=== PATIENT | female | born 1970 | race Caucasian/White ===

== ENCOUNTER 2019-11-28 13:05 | Observation (INO) | payer OTHER ==
--- NOTE | 2019-11-28 13:06 | EDM.PDOC ---
ED HPI GENERAL MEDICAL PROBLEM - General Chief Complaint: Cardiovascular Problem Stated Complaint: tachycardia Time Seen by Provider: 11/28/19 13:06 Source of Information: Reports: Patient, Old Records ([facility] EMR. No paper hospital chart available.) History Limitations: Reports: No Limitations - History of Present Illness INITIAL COMMENTS - FREE TEXT/NARRATIVE: The patient was brought to the emergency room via private automobile by her [id number] for evaluation of sudden onset heart flutter at about 12:40 p.m. this morning associated with dizziness and some mild diaphoresis with nonspecific retrosternal 3/10 chest pressure, which did radiate into her neck and shoulders bilaterally. Note that the patient did have some nonspecific nausea about one hour prior to onset of those symptoms. She has had some recent URI symptoms with secondary nonproductive cough during the last 3 days and has been using OTC cold preparations. She has also been drinking more caffeine than usual and did have 3 glasses of tea yesterday and coffee this morning. She denies any known previous history of similar type symptoms or cardiac complaints /workup. The patient denies any orthostasis, orthopnea, diaphoresis, paresthesias, recent decreased exercise tolerance, or any other anginal-type symptoms. No recent history of abdominal pain, heartburn, emesis, diarrhea, melena, gross hematochezia, or any food intolerance, including fatty foods, etc.. She denies any gross hematuria, colic, or other UTI symptoms. The patient also denies any recent fever, wheezing, dyspnea, etc.. Onset: Today, Sudden Onset Date: 11/28/19 Onset Time: 12:40 Duration: Constant Location: Reports: Neck, Chest, Upper Extremity, Left, Upper Extremity, Right, Radiates to (As above). Denies: Abdomen, Back Quality: Reports: Pressure Improves with: Reports: None Worsens with: Reports: None Context: Reports: Activity (Normal), Other (As above). Denies: Sick Contact, Trauma Associated Symptoms: Reports: Chest Pain, Cough, Diaphoresis, Nausea/Vomiting ( No Emesis). Denies: Confusion, cough w sputum, Fever/Chills, Headaches, Loss of Appetite, Malaise, Rash, Seizure, Shortness of Breath, Syncope Treatments CONTAINERS SALES REPRESENTATIVE: Reports: Other (see below) (None) Middle Chest Pain Score (Numeric/FACES): 3 - Related Data Allergies Allergy/AdvReac Type Severity Reaction Status Date / Time povidone-iodine Allergy Other Verified 11/28/19 13:46 [From Betadine] soap [From Betadine] Allergy Other Verified 11/28/19 13:46 Home Meds: Home Meds D-Methorphan/Acetamin/Doxylamn [Night Cold-Flu Relief Liq Cap] 1 each PO BEDTIME PRN 11/28/19 [History] D-Methorphan/PE/Acetaminophen [Daytime Cold-Flu Relief Sftgl] 2 each PO BID PRN 11/28/19 [History] Ibuprofen 600 - 800 mg PO DAILY PRN 11/28/19 [History] Loratadine [Claritin] 10 mg PO DAILY PRN 11/28/19 [History] Naproxen Sodium [Aleve] 220 mg PO DAILY PRN 11/28/19 [History] Past Medical History HEENT History: Reports: Allergic Rhinitis, Impaired Vision, Other (See Below). Denies: Cataract, Glaucoma, Hard of Hearing, Macular Degeneration, Otitis Media , Retinal Detachment Other HEENT History: Seasonal allergic rhinitis. She wears glasses and soft contact lenses. Cardiovascular History: Reports: High Cholesterol, Hypertension, Other (See Below). Denies: Afib, Aneurysm, Arrhythmia, Blood Clots/VTE/DVT, CAD, Heart Failure, Heart Murmur, OR, Syncope Other Cardiovascular History: Preeclampsia with all pregnancies as below. Hyperlipidemia with no current medical therapy. Respiratory History: Reports: Intubation, Previous. Denies: Asthma, Bronchitis , Recurrent, COPD, Intubation, Difficult, PE, Pneumonia, Recurrent, Pneumothorax , Sleep Apnea Gastrointestinal History: Reports: Colon Polyp, Other (See Below). Denies: Celiac Disease, Cholelithiasis, Chronic Constipation, Chronic Diarrhea, Fecal Incontinence, Gastritis, GERD, GI Bleed, Hepatitis, Hiatal Hernia, Inflammatory Bowel Disease, Irritable Bowel Syndrome, Jaundice, Pancreatitis, PUD Other Gastrointestinal History: Father with colon cancer as below. Genitourinary History: Reports: Urinary Incontinence, Other (See Below). Denies : Acute Renal Failure, Chronic Renal Insuffiency, Renal Calculus, STD, UTI, Recurrent Other Genitourinary History: Urinary incontinence with required hysterectomy as below with no problems after surgery. DISTRICT ADMINISTRATIVE ASSISTANT History: Reports: , Prolapsed Uterus. Denies: Dysfunctional Uterine Bleeding, Endometriosis, Fibroids : 4 Para: 3 LMP (Approximate): Other (See Below) Other DISTRICT ADMINISTRATIVE ASSISTANT History: Surgical menopause secondary to urinary incontinence as above. First trimester SAB requiring D&C as below with first . Premature delivery at 26 weeks gestation with second although vaginal delivery. Subsequent 2 deliveries at full-term at 36 weeks at with however gestational diabetes and preeclampsia with all pregnancies. Musculoskeletal History: Reports: Arthritis, Osteoarthritis. Denies: Back Pain , Chronic, Connective Tissue Disease, Fracture, Gout, Neck Pain, Chronic, RA, SLE Neurological History: Reports: None, Concussion, Head Trauma, Other (See Below) . Denies: Cerebral Aneurysms, CVA, Headaches, Chronic, Migraines, MS, Neuropathy, Peripheral, Parkinson's, Seizure, Vertigo Other Neuro History: Concussions 2 in teenage years. Psychiatric History: Reports: ADD, ADHD, Anxiety, Depression, Panic Attack, Suicidal Ideation. Denies: Abuse, Victim of, Addiction, Psych Hospitalization(s ), PTSD, Suicide Attempt Other Psychiatric History: Suicidal ideation with outpatient psychiatric treatment in about 2014. Endocrine/Metabolic History: Reports: Diabetes, Gestational, Obesity/BMI 30+. Denies: Diabetes, Type I, Diabetes, Type II, Hypothyroidism, IDDM, Osteopenia Hematologic History: Reports: Blood Transfusion(s), Other (See Below). Denies: Anemia, Iron Deficiency Other Hematologic History: Transfusion after second delivery secondary to post hemorrhage. Immunologic History: Reports: None. Denies: AIDS, HIV, SLE Oncologic (Cancer) History: Reports: Cervix, Other (See Below). Denies: Basal Cell Carcinoma, Colon, Hodgkin's Lymphoma, Leukemia, Lymphoma, Malignant Melanoma, Non-Hodgkin's Lymphoma, Ovarian, Squamous Cell Carcinoma, Thyroid, Uterine Other Oncologic History: Cervical atypia with HPV in about 2001 with no therapy required and spontaneous resolution. Dermatologic History: Reports: Other (See Below). Denies: Eczema, Psoriasis Other Dermatologic History: Acne vulgaris. - Infectious Disease History Infectious Disease History: Reports: Chicken Pox. Denies: C-Difficile, Measles , Meningitis, Mononucleosis, MRSA, Mumps, Pertussis (Whooping Cough), Rheumatic Fever, RSV, Rubella, Scarlet Fever, Shingles, TB, VRE - Past Surgical History Head Surgeries/Procedures: Reports: None HEENT Surgical History: Reports: Adenoidectomy, Oral Surgery, Tonsillectomy, Other (See Below). Denies: Cataract Surgery, Eye Surgery, Laser Surgery, LASIK , Myringotomy w Tube(s), Naso-Sinus Surgery Other HEENT Surgeries/Procedures: Tonsillectomy and adenoidectomy at age 9. [place] teeth extraction 4 at age 21 with additional teeth extractions. Cardiovascular Surgical History: Reports: None. Denies: Varicose Respiratory Surgical History: Reports: None. Denies: Thoracentesis GI Surgical History: Denies: Appendectomy, Cholecystectomy, Colonoscopy, EGD, Hernia, Abdominal, Hernia, Inguinal, Hernia Repair/Other Female Surgical History: Reports: D&C, Dilitation & Evacuation, Hysterectomy , Other (See Below). Denies: Breast Biopsy, Breast Reconstruction, Breast Reduction, Section, Cervical Conization, Cervical Cryotherapy, LEEP, Oophorectomy, Salpingo-Oophorectomy, Tubal Ligation Other Female Surgeries/Procedures: Partial Hysterectomy secondary to uterine incontinence as above in 2017. D&C from SAB during first as above. Endocrine Surgical History: Reports: None. Denies: Thyroid Biopsy Neurological Surgical History: Reports: None. Denies: C-Spine, Discectomy, Laminectomy, Lumbar Spine, Sacral Spine, Spinal Fusion, Thoracic Spine, Vertebroplasty Musculoskeletal Surgical History: Reports: None. Denies: Arthroscopic Procedure , Carpal Tunnel, Ganglion Cyst, Joint Replacement, ORIF, Shoulder Surgery Oncologic Surgical History: Reports: None Dermatological Surgical History: Reports: None - Past Imaging History Past Imaging History: Reports: Mammogram (Last mammogram in 2018 by patient history with our record showing mammogram on 09/29/14.) Social & Family History - Family History HEENT: Reports: Glaucoma, Other (See Below). Denies: Macular Degeneration, Retinal Detachment Other HEENT Family History: Father with glaucoma. Cardiac: Reports: Bypass, CAD, Heart Murmur, High Cholesterol, Hypertension, OR , Other (See Below). Denies: Afib, Aneurysm, Arrhythmia, Blood Clots/VTE/DVT, Heart Failure, Pacemaker, PVD/COD, Syncope Other Cardiac Family History: Father with initial OR at age 55 with history of subsequent borderline unstable angina recurrent MIs requiring total of 3 CABGs? Additional history of unknown valvular surgery. Hypertension in in father, sisters 2 and brothers 2. Father with hyperlipidemia. Respiratory: Reports: Asthma, COPD, Sleep Apnea, Other (See Below). Denies: PE , Pneumothorax Other Respiratory Family Hisory: Mother with history of asthma/? COPD with history of tobacco use. Brother with sleep apnea. GI: Reports: None. Denies: Celiac Disease, Cholelithiasis, Colon Polyps, GERD, GI bleed, Hepatitis, Inflammatory Bowel Disease, Irritable Bowel Syndrome, PUD : Reports: Renal Calculus, Other (See Below). Denies: Dialysis, Renal Disease /Insufficiency, UTI, Recurrent Other Family History: Mother and brother with urolithiasis. OBGYN: Reports: None. Denies: Dysfunctional uterine bleeding, Endometriosis, Fibroids, Recurrent Spontaneous Musculoskeletal: Reports: Osteoarthritis, RA, Other (See Below). Denies: Gout, SLE Other Musculoskeletal Family History: Sister with rheumatoid arthritis. Osteoarthritis in sisters 2 and brothers 2. Neurological: Reports: Alzheimers Disease, Dementia, Migraines, Other (See Below ). Denies: CVA, MS, Parkinson's, Seizure, TIA Other Neurological Family History: Father with fatal organic brain syndrome in his 80s. Migraine headaches in sister and brother. Mother with restless leg syndrome. Psychiatric: Reports: Anxiety, Depression, Other (See Below). Denies: Abuse, Victim of, ADD, ADHD, Psych Hospitalization(s), PTSD, Suicide Attempt Other Psychiatric Family History: Anxiety depression disorder in mother, sisters 3 and brothers 2. Endocrine/Metabolic: Reports: Diabetes, type II, IDDM, Obesity/MBI 30+, Other ( See Below). Denies: Diabetes, Type I, Diabetes Mellitus, Type 3c Other Endocrine/Metabolic Family History: AODM in brother and sister. Father with IDDM. Obesity in parents, sisters 3 and brothers 2. Hematologic: Reports: Anemia, Other (See Below). Denies: SLE Other Hematologic Family History: Mother with anemia. Immunologic: Reports: None. Denies: AIDS, HIV, SLE Dermatologic: Reports: None. Denies: Eczema, Psoriasis Oncologic: Reports: Breast, Colon, Metastatic, Other (See Below). Denies: Cervix, Hodgkin's Lymphoma, Leukemia, Lymphoma, Non-Hodgkin's Lymphoma, Ovarian , Skin, Uterine Other Oncologic Family History: Mother breast cancer in her 70s and and sisters 2 with breast cancer in their 40s with qne sister having metastatic breast cancer in her 50s. Father with colon cancer in his late 70s. - Tobacco Use Smoking Status *Q: Never Smoker Tobacco Use Within Last Twelve Months: No Used Tobacco, but Quit: No Smoking Cessation Information Provided To Patient: No Second Hand Smoke Exposure: No Second Hand Smoke Education Provided: No - Caffeine Use Caffeine Use: Reports: Coffee (One cup of coffee versus one glass of tea per day ), Soda (Occasional soda without other caffeinated beverages weekly), Tea (As above). Denies: Energy Drinks - Alcohol Use Alcohol Use History: No Days Per Week of Alcohol Use: 0 Number of Drinks Per Day: 0 Number of Drinks Per Day Comment: No previous DWIs, problems with alcohol abuse , etc. Total Drinks Per Week: 0 Alcohol Use in Last Twelve Months: No - Recreational Drug Use Recreational Drug Use: Yes Drug Use in Last 12 Months: No Recreational Drug Type: Reports: Inhalants (Glues, Solvents, Aerosols) (As a child). 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 ED EXAM, GENERAL - Physical Exam Exam: See Below Exam Limited By: No Limitations General Appearance: Alert, WD/WN, No Apparent Distress, Anxious (Mild) Eye Exam: Bilateral Eye: EOMI, Normal Inspection (No nystagmus. Patient wearing glasses), PERRL Ears: Normal External Exam, Normal Canal, Hearing Grossly Normal, Normal TMs Nose: Normal Inspection, Normal Mucosa, No Blood Throat/Mouth: Normal Inspection, Normal Lips, Normal Teeth (Occasional missing teeth), Normal Gums, Normal Oropharynx, Normal Voice, No Airway Compromise. No : Dysphagia, Perioral Cyanosis Head: Atraumatic, Normocephalic. No: Facial Swelling, Facial Tenderness, Sinus Tenderness Neck: Normal Inspection, Supple, Non-Tender, Full Range of Motion. No: Carotid Bruit, Lymphadenopathy (L), Lymphadenopathy (R), Thyromegaly Respiratory/Chest: No Respiratory Distress, Lungs Clear, Normal Breath Sounds, No Accessory Muscle Use, Chest Non-Tender. No: Pleural Rub, Retractions Cardiovascular: Normal Peripheral Pulses, No Edema, No Gallop, No JVD, No Murmur , No Rub, Tachycardia. No: Gallop/S3, Gallop/S4, Extra Beats (No PVCs noted during exam with regular rhythm), Friction Rub Peripheral Pulses: 2+: Radial (L), Radial (R), Dorsalis Pedis (L), Dorsalis Pedis (R) GI/Abdominal: Normal Bowel Sounds, Soft, Non-Tender, No Organomegaly, No Distention, No Abnormal Bruit, No Mass, Pelvis Stable, Other (Obese). No: Guarding (Female) Exam: Deferred Rectal (Female) Exam: Deferred Back Exam: Normal Inspection, Full Range of Motion. No: CVA Tenderness (L), CVA Tenderness (R), Muscle Spasm Extremities: Normal Inspection, Normal Range of Motion, Non-Tender, No Pedal Edema, Normal Capillary Refill. No: Meera's Sign Neurological: Alert, Oriented, CN II-XII Intact, Normal Cognition, Normal Gait, Normal Reflexes (Negative Babinski's), No Motor/Sensory Deficits Psychiatric: Anxious (Mild). No: Depressed Mood (Excellent eye contact) Skin Exam: Warm, Dry, Intact, Normal Color, No Rash. No: Diaphoretic, Wound/ Incision Lymphatic: No Adenopathy EKG INTERPRETATION EKG Date: 11/28/19 Time: 13:11 Rhythm: NSR Rate (Beats/Min): 96 [place]: Normal (Neutral) P-Wave: Enlarged (Moderate diffuse biphasic P waves with pulmonary hypertension by EKG) QRS: Normal (0.08 seconds) ST-T: Normal (Nonspecific ST changes) QT: Normal MD/PQ Interval: 0.16 seconds Comparison: NA - No Prior EKG EKG Interpretation Comments: 1. No acute ischemic changes 2. Left Atrial enlargement 3. Pulmonary hypertension by EKG Course - Vital Signs Last Recorded V/S: Last Vital Signs Temp 36.6 C 11/28/19 13:05 Pulse 89 11/28/19 14:15 Resp 18 11/28/19 14:15 BP 144/71 H 11/28/19 14:15 Pulse Ox 98 11/28/19 14:15 Vital Signs - 24 hr 11/28/19 11/28/19 11/28/19 13:05 13:07 13:14 Temperature [ 36.6 C Temporal] Pulse, 98 Peripheral Pulse, 200 H Peripheral [ Left Pulse Oximetry] Respiratory 16 Rate Blood Pressure 137/86 Blood Pressure 137/86 [Left Upper Arm ] O2 Sat by Pulse 96 Oximetry O2 Sat by Pulse 96 Oximetry [Room Air] 11/28/19 11/28/19 11/28/19 13:15 13:30 13:45 Temperature [ Temporal] Pulse, Peripheral Pulse, 98 87 94 Peripheral [ Left Pulse Oximetry] Respiratory 16 16 16 Rate Blood Pressure Blood Pressure 137/86 145/88 H 149/84 H [Left Upper Arm ] O2 Sat by Pulse 96 94 L 96 Oximetry O2 Sat by Pulse Oximetry [Room Air] 11/28/19 11/28/19 11/28/19 13:49 14:02 14:15 Temperature [ Temporal] Pulse, 89 Peripheral Pulse, 86 89 Peripheral [ Left Pulse Oximetry] Respiratory 14 18 Rate Blood Pressure 149/84 H Blood Pressure 145/97 H 144/71 H [Left Upper Arm ] O2 Sat by Pulse 97 98 Oximetry O2 Sat by Pulse Oximetry [Room Air] - Orders/Labs/Meds Orders: Active Orders 24 hr Category Date Time Status Cardiac Monitoring [RC] . DIRECTED Care 11/28/19 13:07 Active EKG Documentation Completion [RC] ASDIRECTED Care 11/28/19 13:07 Active Oxygen Therapy, ED [RC] PRN Care 11/28/19 13:07 Active Peripheral IV Care [RC] . DIRECTED Care 11/28/19 13:07 Active Pulse Oximetry [RC] CONTINUOUS Care 11/28/19 13:07 Active Up With Assistance [RC] PFP Care 11/28/19 13:07 Active Vital Signs [RC] PFP Care 11/28/19 13:07 Active Nothing per Oral Now Diet [DIET] Diet 11/28/19 Breakfast Active Chest 1V Frontal [CR] Stat Exams 11/28/19 13:07 Ordered Sodium Chloride 0.9% [Saline Flush] Med 11/28/19 13:07 Active 10 ml FLUSH ASDIRECTED PRN Obtain Past Medical Record [OM.PC] Urgent Oth 11/28/19 13:07 Active Peripheral IV Insertion Adult [OM.PC] Stat Oth 11/28/19 13:07 Ordered Resuscitation Status Stat Resus Stat 11/28/19 13:07 Ordered Medication Orders Sodium Chloride (Saline Flush) 10 ml FLUSH ASDIRECTED PRN PRN Reason: Keep Vein Open Last Admin: 11/28/19 14:07 Dose: 10 ml Admin: 11/28/19 14:06 Dose: 10 ml Admin: 11/28/19 14:05 Dose: 10 ml Admin: 11/28/19 13:52 Dose: 10 ml Labs: Laboratory Tests 11/28/19 11/28/19 11/28/19 Range/Units 13:15 13:15 13:15 WBC 6.5 (4.0-10.2) K/uL RBC 4.63 (3.77-5.09) M/uL Hgb 14.3 (11.7-15.5) g/dL Hct 40.7 (34.0-46.0) % MCV 87.9 (84.0-98.0) fL MCH 30.9 (28.2-33.3) pg MCHC 35.1 (31.7-36.0) g/dL RDW 12.2 (11.2-14.1) % Plt Count 275 (150-350) K/uL Neut % (Auto) 52.1 (45.0-80.0) % Lymph % (Auto) 35.6 (10.0-50.0) % Donley % (Auto) 9.8 (2.0-14.0) % Eos % (Auto) 1.7 (0.0-5.0) % Baso % (Auto) 0.8 (0.0-2.0) % Neut # (Auto) 3.41 (1.40-7.00) K/uL Lymph # (Auto) 2.33 (0.50-3.50) K/uL Donley # (Auto) 0.64 (0.00-1.00) K/uL Eos # (Auto) 0.11 (0.00-0.50) K/uL Baso # (Auto) 0.05 (0.00-0.20) K/uL PT 10.0 (9.5-12.0) SEC INR 1.0 APTT 25.9 (21.0-31.3) SEC D-Dimer, Quantitative 121 (0-400) ng/mL Sodium (136-145) mmol/L Potassium (3.5-5.1) mmol/L Chloride (98-107) mmol/L Carbon Dioxide (21.0-32.0) mmol/L BUN (7-18) mg/dL Creatinine (0.51-1.17) mg/dL Est Cr Clr Drug Dosing Estimated GFR (MDRD) mL/min Glucose (74-106) mg/dL Lactic Acid (0.4-2.0) mmol/L Uric Acid (2.6-7.2) mg/dL Calcium (8.5-10.1) mg/dL Magnesium (1.8-2.4) mg/dL Total Bilirubin (0.2-1.0) mg/dL AST (15-37) U/L ALT (12-78) U/L Alkaline Phosphatase (46-116) IU/L Creatine Kinase (26-308) U/L Creatine Kinase Index (0.0-2.5) % CK-MB (CK-2) (0.00-3.60) ng/mL Troponin I (0.000-0.056) ng/mL NT-Pro-B Natriuret Pep (0-125) pg/mL Total Protein (6.4-8.2) g/dL Albumin (3.4-5.0) g/dL TSH, Ultra Sensitive (0.358-3.740) mIU/mL 11/28/19 11/28/19 Range/Units 13:15 13:15 WBC (4.0-10.2) K/uL RBC (3.77-5.09) M/uL Hgb (11.7-15.5) g/dL Hct (34.0-46.0) % MCV (84.0-98.0) fL MCH (28.2-33.3) pg MCHC (31.7-36.0) g/dL RDW (11.2-14.1) % Plt Count (150-350) K/uL Neut % (Auto) (45.0-80.0) % Lymph % (Auto) (10.0-50.0) % Donley % (Auto) (2.0-14.0) % Eos % (Auto) (0.0-5.0) % Baso % (Auto) (0.0-2.0) % Neut # (Auto) (1.40-7.00) K/uL Lymph # (Auto) (0.50-3.50) K/uL Donley # (Auto) (0.00-1.00) K/uL Eos # (Auto) (0.00-0.50) K/uL Baso # (Auto) (0.00-0.20) K/uL PT (9.5-12.0) SEC INR APTT (21.0-31.3) SEC D-Dimer, Quantitative (0-400) ng/mL Sodium 139 (136-145) mmol/L Potassium 3.8 (3.5-5.1) mmol/L Chloride 102 (98-107) mmol/L Carbon Dioxide 27.1 (21.0-32.0) mmol/L BUN 12 (7-18) mg/dL Creatinine 0.77 (0.51-1.17) mg/dL Est Cr Clr Drug Dosing TNP Estimated GFR (MDRD) > 60 mL/min Glucose 129 H (74-106) mg/dL Lactic Acid 1.2 (0.4-2.0) mmol/L Uric Acid 3.7 (2.6-7.2) mg/dL Calcium 8.9 (8.5-10.1) mg/dL Magnesium 1.8 (1.8-2.4) mg/dL Total Bilirubin 0.3 (0.2-1.0) mg/dL AST 23 (15-37) U/L ALT 31 (12-78) U/L Alkaline Phosphatase 58 (46-116) IU/L Creatine Kinase 129 (26-308) U/L Creatine Kinase Index 0.9 (0.0-2.5) % CK-MB (CK-2) 1.20 (0.00-3.60) ng/mL Troponin I 0.000 (0.000-0.056) ng/mL NT-Pro-B Natriuret Pep 58 (0-125) pg/mL Total Protein 7.9 (6.4-8.2) g/dL Albumin 4.1 (3.4-5.0) g/dL TSH, Ultra Sensitive 0.820 (0.358-3.740) mIU/mL Meds: Medications Generic Name Dose Route Start Last Admin Trade Name Freq PRN Reason Stop Dose Admin Sodium Chloride 10 ml 11/28/19 13:07 11/28/19 14:07 Saline Flush FLUSH 10 ml ASDIRECTED PRN Administration Keep Vein Open Discontinued Medications Generic Name Dose Route Start Last Admin Trade Name Freq PRN Reason Stop Dose Admin Adenosine 6 mg 11/28/19 13:08 11/28/19 13:10 Adenocard IVPUSH 11/28/19 13:09 6 mg NOW ONE Administration Adenosine Confirm 11/28/19 13:09 11/28/19 13:47 Adenocard Administered 11/28/19 13:10 Not Given Dose 6 mg .ROUTE .STK-MED ONE Aspirin 324 mg 11/28/19 13:07 11/28/19 13:12 Aspirin CHEW 11/28/19 13:08 324 mg ONETIME ONE Administration Famotidine 40 mg 11/28/19 13:07 11/28/19 13:14 Pepcid IVPUSH 11/28/19 13:08 40 mg ONETIME ONE Administration Metoprolol Tartrate 2.5 mg 11/28/19 13:11 11/28/19 13:14 Lopressor IVPUSH 11/28/19 13:12 2.5 mg ONETIME ONE Administration Metoprolol Tartrate 50 mg 11/28/19 13:46 11/28/19 13:49 Lopressor PO 11/28/19 13:47 50 mg ONETIME ONE Administration Ticagrelor 180 mg 11/28/19 13:07 11/28/19 13:12 Brilinta PO 11/28/19 13:08 180 mg ONETIME ONE Administration - Radiology Interpretation Free Text/Narrative:: monitor worker showed initial severe sinus tachycardia in the 190s to 200s with very occasional uniform PVCs. Post cardioversion to normal sinus rhythm with heart rates in the 80s with no ectopy or arrhythmia Chest x-ray, portable, shows no cardiomegaly, pulmonary infiltrates, pneumothorax, etc. Borderline mild centralized congestion of pulmonary vasculature/CHF. Departure - Departure Time of Disposition: 14:35 Disposition: Refer to Observation Condition: Good Clinical Impression: Tachycardia, PVCs (premature ventricular contractions), Hyperlipidemia, Hypertension, Osteoarthritis, Mixed anxiety depressive disorder, Chest pain Forms: ED Department Discharge Care Plan Goals: See plan Sepsis Event Note - Focused Exam Vital Signs: Vital Signs Temp Pulse Pulse Resp BP BP Pulse Ox 11/28/19 14:15 89 18 144/71 H 98 11/28/19 14:02 86 14 145/97 H 97 11/28/19 13:49 89 149/84 H 11/28/19 13:45 94 16 149/84 H 96 11/28/19 13:30 87 16 145/88 H 94 L 11/28/19 13:15 98 16 137/86 96 11/28/19 13:14 98 137/86 11/28/19 13:07 11/28/19 13:05 36.6 C 200 H 16 137/86 96 Pulse Ox 11/28/19 14:15 11/28/19 14:02 11/28/19 13:49 11/28/19 13:45 11/28/19 13:30 11/28/19 13:15 11/28/19 13:14 11/28/19 13:07 96 11/28/19 13:05 Date Exam was Performed: 11/28/19 Time Exam was Performed: 14:33 - Problem List & Annotations (1) Chest pain SNOMED Code(s): 27990133 Code(s): R07.9 - CHEST PAIN, UNSPECIFIED Status: Acute Priority: High Current Visit: Yes Onset Date: 11/28/19 Annotation/Comment:: Chest pain protocol initiated immediately upon patient's arrival to the emergency room. Note complete resolution of patient's chest pressure and other cardiac symptoms after medical cardioversion as below. Initiate standard rule out OR orders. Cardiology consultation depending on her clinical course. Cardiolite stress test to be conducted on an outpatient basis. Qualifiers: Chest pain type: precordial pain Qualified Code(s): R07.2 - Precordial pain (2) Tachycardia SNOMED Code(s): 5215662 Code(s): R00.0 - TACHYCARDIA, UNSPECIFIED Status: Acute Priority: High Current Visit: Yes Onset Date: 11/28/19 Annotation/Comment:: Instantaneous response and conversion with low-dose adenosine as above. Probable PSVT, however secondary to quick response to medical therapy exact diagnosis difficult at this time. Additional IV Lopressor and oral Lopressor given in the emergency room with continuation of beta amauri therapy at discharge. Note PVCs as below. Further cardiac workup as above. Consider event monitor, echocardiogram, etc. depending on her clinical course. (3) PVCs (premature ventricular contractions) SNOMED Code(s): 36567443 Code(s): I49.3 - VENTRICULAR PREMATURE DEPOLARIZATION Status: Acute Priority: High Current Visit: Yes Onset Date: 11/28/19 Annotation/Comment: : As above. Beta amauri therapy as above. Cardiac workup as above. (4) Hyperlipidemia SNOMED Code(s): 67705126 Code(s): E78.5 - HYPERLIPIDEMIA, UNSPECIFIED Status: Chronic Priority: Medium Current Visit: Yes Annotation/Comment:: History of hyperlipidemia with no current medical therapy. Lipid panel and glycosylated hemoglobin to be conducted in the a.m. Note previous history of station with diabetes as above. Dietary information to be given at discharge. Qualifiers: Hyperlipidemia type: unspecified Qualified Code(s): E78.5 - Hyperlipidemia , unspecified (5) Hypertension SNOMED Code(s): 55966540 Code(s): I10 - ESSENTIAL (PRIMARY) HYPERTENSION Status: Acute Priority: High Current Visit: Yes Annotation/Comment:: Blood pressures were somewhat elevated in the emergency room. Beta amauri therapy initiated as above. Note history of preeclampsia with all of her pregnancies. Continue close follow-up by her regular providers. Qualifiers: Hypertension type: essential hypertension Qualified Code(s): I10 - Essential (primary) hypertension (6) Mixed anxiety depressive disorder SNOMED Code(s): 890808130 Code(s): F41.8 - OTHER SPECIFIED ANXIETY DISORDERS Status: Chronic Current Visit: Yes Annotation/Comment:: Stable by patient history with patient stopping her medications on her own on with no apparent sequelae since May 2019. (7) Osteoarthritis SNOMED Code(s): 221726299 Code(s): M19.90 - UNSPECIFIED OSTEOARTHRITIS, UNSPECIFIED SITE Status: Chronic Priority: Medium Current Visit: Yes Annotation/Comment:: Stable by patient history Qualifiers: Osteoarthritis location: multiple joints Osteoarthritis type: primary Qualified Code(s): M15.0 - Primary generalized (osteo)arthritis - Problem List Review Problem List Initiated/Reviewed/Updated: Yes - My Orders Last 24 Hours: My Active Orders 11/28/19 13:07 Cardiac Monitoring [RC] . DIRECTED EKG Documentation Completion [RC] ASDIRECTED Oxygen Therapy, ED [RC] PRN Peripheral IV Care [RC] . DIRECTED Pulse Oximetry [RC] CONTINUOUS Up With Assistance [RC] PFP Vital Signs [RC] PFP Chest 1V Frontal [CR] Stat Sodium Chloride 0.9% [Saline Flush] 10 ml FLUSH ASDIRECTED PRN Obtain Past Medical Record [OM.PC] Urgent Peripheral IV Insertion Adult [OM.PC] Stat Resuscitation Status Stat 11/28/19 Breakfast Nothing per Oral Now Diet [DIET] - Assessment/Plan Admission H&P: Please use this note as an admission H&P Last 24 Hours: My Active Orders 11/28/19 13:07 Cardiac Monitoring [RC] . DIRECTED EKG Documentation Completion [RC] ASDIRECTED Oxygen Therapy, ED [RC] PRN Peripheral IV Care [RC] . DIRECTED Pulse Oximetry [RC] CONTINUOUS Up With Assistance [RC] PFP Vital Signs [RC] PFP Chest 1V Frontal [CR] Stat Sodium Chloride 0.9% [Saline Flush] 10 ml FLUSH ASDIRECTED PRN Obtain Past Medical Record [OM.PC] Urgent Peripheral IV Insertion Adult [OM.] Stat Resuscitation Status Stat 11/28/19 Breakfast Nothing per Oral Now Diet [DIET] Assessment:: As above Plan: As above. Extensive precautions were given to the patient, who is in agreement with the treatment plan. The patient's condition is stable enough for observation status and general supervision.
[2019-11-28] MEDS ORDERED: Ticagrelor 90 MG Tab PO ONE (13:07)
[2019-11-28] MEDS ORDERED: Aspirin 81 MG Tab.Chew CHEW ONE (13:07)
[2019-11-28] MEDS ORDERED: Famotidine 20 MG/2 ML SDV IVPUSH ONE (13:07)
[2019-11-28] MEDS ORDERED: Adenosine 6 MG/2 ML SDV IVPUSH ONE (13:08)
[2019-11-28] MEDS ORDERED: Adenosine 6 MG/2 ML SDV ONE (13:09)
[2019-11-28] MEDS ORDERED: Metoprolol Tartrate 5 MG/5 ML SDV IVPUSH ONE (13:11)
[2019-11-28 13:41] LABS: PTT,PARTIAL THROMBOPLSTIN TIME 25.9 SEC (21.0-31.3)
[2019-11-28] MEDS ORDERED: Metoprolol Tartrate 50 MG Tab PO ONE (13:46)
[2019-11-28 13:51] LABS: CHLORIDE,CL 102 mmol/L (98-107); SODIUM,NA 139 mmol/L (136-145)
[2019-11-28] MEDS: Sodium Chloride 0.9% 10 ML Syringe FLUSH PRN ×4 (13:52→14:07)
[2019-11-28] MEDS ORDERED: Temazepam 15 MG Cap PO PRN (14:57)
[2019-11-28] MEDS ORDERED: Sodium Chloride 0.9% 10 ML Syringe FLUSH PRN (14:57)
[2019-11-28] MEDS ORDERED: Acetaminophen 325 MG Tab PO PRN (15:00)
[2019-11-29] MEDS ORDERED: Metoprolol Succinate 50 MG Tab.ER PO SCH (08:00)
[2019-11-29] MEDS ORDERED: FLU Vacc QS2019-20(6MOS+)/PF 60 MCG/0.5 ML SYRINGE IM ONE (08:00)
[2019-11-29 08:21] LABS: HEMOGLOBIN A1C 5.8 % (4.3-5.7)
[2019-11-29 08:42] LABS: CHLORIDE,CL 103 mmol/L (98-107); SODIUM,NA 140 mmol/L (136-145)
--- NOTE | 2019-11-29 12:26 | PCM.DCSUM1 ---
Discharge Summary - Hospital Course HPI Initial Comments: See emergency room note/admission H&P Brief History: See emergency room note/admission H&P Diagnosis: Stroke: No Modified Woden Scale: No Symptoms at All Modified Woden Scale Score: 0 - Discharge Data Discharge Date: 11/29/19 Discharge Disposition: Home, Self-Care 01 Condition: Good - Referral to Home Health Primary Care Physician: Gabrielle Barclay ENGINE ROOM HELPER - Discharge Diagnosis/Problem(s) (1) Chest pain SNOMED Code(s): 29910755 ICD Code: R07.9 - CHEST PAIN, UNSPECIFIED Status: Acute Priority: High Onset Date: 11/28/19 Problem Details: No recurrence of her chest pain or anginal type symptoms during the entire hospitalization. Note mild increase of her troponin I with otherwise normal cardiac enzymes and improvement prior to discharge. No evidence of significant coronary artery disease, however multiple cardiac risk factors. Cardiolite stress test will be conducted in this facility on 12/03 with further cardiac workup and/or consultation depending on her clinical course. Otherwise negative workup for acute OR. Chest pain protocol initiated immediately upon patient's arrival to the emergency room. Note complete resolution of patient's chest pressure and other cardiac symptoms after medical cardioversion as below. Activity restrictions, injury precautions , etc. were discussed. Qualifiers: Chest pain type: precordial pain Qualified Code(s): R07.2 - Precordial pain (2) Tachycardia SNOMED Code(s): 3248924 ICD Code: R00.0 - TACHYCARDIA, UNSPECIFIED Status: Acute Priority: High Onset Date: 11/28/19 Problem Details: No recurrence of her cardiac arrhythmia. Continue beta amauri therapy. Instantaneous response and conversion with low-dose adenosine as per emergency room note. Probable PSVT, however secondary to quick response to medical therapy exact diagnosis difficult at this time. Additional IV Lopressor and oral Lopressor given in the emergency room with continuation of beta amauri therapy at discharge. Note PVCs in the emergency room, however no recurrence since admission. Further cardiac workup as above. Consider event monitor, echocardiogram, etc. depending on her clinical course. (3) PVCs (premature ventricular contractions) SNOMED Code(s): 10998246 ICD Code: I49.3 - VENTRICULAR PREMATURE DEPOLARIZATION Status: Acute Priority: High Onset Date: 11/28/19 Problem Details: As above. Beta amauri therapy as above. Cardiac workup as above. (4) Hyperlipidemia SNOMED Code(s): 23977447 ICD Code: E78.5 - HYPERLIPIDEMIA, UNSPECIFIED Status: Chronic Priority: Medium Problem Details: Significant mixed hyperlipidemia based on blood work this morning. Note no current medical therapy with weight loss in moderation advisable. Strongly consider statin therapy depending on her weight loss and clinical course. Note previous history of gestational diabetes with glycosylated hemoglobin of 5.8% this morning. Dietary information to be given at discharge. Qualifiers: Hyperlipidemia type: unspecified Qualified Code(s): E78.5 - Hyperlipidemia , unspecified (5) Hypertension SNOMED Code(s): 58430408 ICD Code: I10 - ESSENTIAL (PRIMARY) HYPERTENSION Status: Acute Priority: High Problem Details: Blood pressures were somewhat elevated in the emergency room however much improved during this hospitalization. Beta amauri therapy initiated as above. Note history of preeclampsia with all of her pregnancies. Continue close follow-up by her regular providers. Qualifiers: Hypertension type: essential hypertension Qualified Code(s): I10 - Essential (primary) hypertension (6) Mixed anxiety depressive disorder SNOMED Code(s): 667585539 ICD Code: F41.8 - OTHER SPECIFIED ANXIETY DISORDERS Status: Chronic Problem Details: Stable by patient history with patient stopping her medications on her own on with no apparent sequelae since May 2019. Continue to observe closely by her regular providers. (7) Osteoarthritis SNOMED Code(s): 676428532 ICD Code: M19.90 - UNSPECIFIED OSTEOARTHRITIS, UNSPECIFIED SITE Status: Chronic Priority: Medium Problem Details: Stable by patient history Qualifiers: Osteoarthritis location: multiple joints Osteoarthritis type: primary Qualified Code(s): M15.0 - Primary generalized (osteo)arthritis - Patient Summary/Data Operative Procedure(s) Performed: None Complications: None Consults: None Labs Pending at D/C: Final chest x-ray report from 11/28/19 Recommended Follow-up Testing/Procedures: As above Planned Operative Procedure(s) after DC: Cardiolite Stress test as above. Hospital Course: The patient was placed in observation status on telemetry with negative workup for acute OR as above. No recurrence of her cardiac arrhythmia during this hospitalization. Otherwise no complications during this hospitalization. - Patient Instructions Diet: Heart Healthy Diet Diet, Other: 1200-calorie ADA diet Activity: No Strenuous Activities (50% maximum exercise restriction with fall/ injury precautions, etc. as discussed.) Driving: May Drive Today Showering/Bathing: May Shower Notify Provider of: Increased Pain, Nausea and/or Vomiting Other/Special Instructions: 1. Followup with your regular provider in 10-14 days as directed for reevaluation and discussion of Cardiolite stress test results as below. Bring these discharge instructions with you to that visit. 2. Tylenol 650 mg by mouth every 4 hours and/or OTC ibuprofen 2-3 tabs by mouth every 6 hours with food as directed./needed. You may stagger these medications for 48-72 hours only, which essentially means that you are receiving a pain medication about every 2 hours. 3. Activity restrictions, fall/injury precautions, etc. as discussed. 4. Cardiolite stress test in this facility on 12/04/19 with this facility to call you on 12/03/19 for further instructions. 5. Immediately after this visit verify that your cellular telephone's voicemail has been activated and is empty. Also verify that your home telephone's answering machine is operating properly and has space to receive messages. Note that it is sometimes necessary for us to be able to contact you at a later date to discuss your medical care. 6. Please remember that we are ALWAYS here for you and want to answer any questions you may have. Feel free to call the hospital any time and we call you back AMBER. - Discharge Plan *PRESCRIPTION DRUG MONITORING PROGRAM REVIEWED*: Not Applicable *COPY OF PRESCRIPTION DRUG MONITORING REPORT IN PATIENT NABILA: Not Applicable Prescriptions/Med Rec: Metoprolol Succinate [Toprol XL 50mg] 50 mg PO DAILY #30 tab.er Home Medications: Home Meds D-Methorphan/Acetamin/Doxylamn [Night Cold-Flu Relief Liq Cap] 1 each PO BEDTIME PRN 11/28/19 [History] D-Methorphan/PE/Acetaminophen [Daytime Cold-Flu Relief Sftgl] 2 each PO BID PRN 11/28/19 [History] Ibuprofen 600 - 800 mg PO DAILY PRN 11/28/19 [History] Loratadine [Claritin] 10 mg PO DAILY PRN 11/28/19 [History] Metoprolol Succinate [Toprol XL 50mg] 50 mg PO DAILY #30 tab.er 11/29/19 [Rx] Oxygen Therapy Mode: Room Air Patient Handouts: Supraventricular Tachycardia, Adult, [id number], Heart- Healthy Eating Plan, [id number], Chest Wall Pain, Huof-ca-Lacc, Diabetes Mellitus and Nutrition, Adult Forms: ED Department Discharge Referrals: Gabrielle Barclay, ENGINE ROOM HELPER [Primary Care Provider] - - Discharge Summary/Plan Comment DC Time >30 min.: Yes (Coordination of care ) Discharge Summary/Plan Comment: As above. Extensive precautions were given to the patient, who is in agreement with the treatment plan. See Patient Instructions for further treatment and plan. - General Info Date of Service: 11/29/19 Admission Dx/Problem (Free Text: 1. Tachycardia 2. Chest pain Functional Status: Reports: Pain Controlled, Tolerating Diet, Urinating, Incentive Spirometry. Denies: New Symptoms Numeric/FACES Score: 0 - Review of Systems General: Reports: No Symptoms. Denies: Fever, Weakness, Fatigue, Malaise, Chills, Night Sweats, Appetite, Other HEENT: Reports: Glasses. Denies: Contact Lenses, Dysphasia, Ear Pain, Headaches , Post Nasal Drip, Sinus Congestion, Sore Throat, Rhinitis, Visual Changes Pulmonary: Reports: No Symptoms. Denies: Shortness of Breath, Pleuritic Chest Pain, Cough, Sputum, Hemoptysis, Wheezing Cardiovascular: Reports: No Symptoms. Denies: Chest Pain, Palpitations, Dyspnea on Exertion, Orthopnea, PND, Edema, Lightheadedness Gastrointestinal: Reports: No Symptoms, Other (No bowel movement since admission.). Denies: Abdominal Pain, Constipation, Decreased Appetite, Diarrhea , Difficulty Swallowing, Flatus, Hematochezia, Melena, Nausea, Vomiting Genitourinary: Reports: No Symptoms. Denies: Dysuria, Frequency, Burning, Pain , Urgency, Hematuria, Retention, Flank Pain Musculoskeletal: Reports: No Symptoms. Denies: Neck Pain, Shoulder Pain, Arm Pain, Back Pain, Leg Pain Skin: Reports: No Symptoms. Denies: Diaphoresis, Bruising Neurological: Reports: No Symptoms. Denies: Dizziness, Numbness, Paresthesia, Tingling Psychiatric: Reports: No Symptoms. Denies: Confusion, Depression, Anxiety, Agitation, Cravings - Patient Data Vitals - Most Recent: Last Vital Signs Temp 36.4 C 11/29/19 08:00 Pulse 80 11/29/19 08:00 Resp 16 11/29/19 08:00 BP 140/77 11/29/19 08:00 Pulse Ox 99 11/29/19 08:00 Vital Signs - 24 hr 11/28/19 11/28/19 11/28/19 14:02 14:15 14:57 Temperature [ 36.6 C Temporal] Pulse, Peripheral Pulse, 86 89 82 Peripheral [ Left Pulse Oximetry] Respiratory 14 18 12 Rate Blood Pressure Blood Pressure 145/97 H 144/71 H 146/82 H [Left Upper Arm ] O2 Sat by Pulse 97 98 98 Oximetry 11/28/19 11/28/19 11/28/19 16:39 18:00 20:00 Temperature [ 36.7 C 37.1 C 37.1 C Temporal] Pulse, Peripheral Pulse, 75 76 76 Peripheral [ Left Pulse Oximetry] Respiratory 18 20 20 Rate Blood Pressure Blood Pressure 151/90 H 150/87 H 150/87 H [Left Upper Arm ] O2 Sat by Pulse 99 99 99 Oximetry 11/29/19 11/29/19 11/29/19 00:00 04:00 07:57 Temperature [ 36.8 C 36.9 C Temporal] Pulse, 80 Peripheral Pulse, 80 82 Peripheral [ Left Pulse Oximetry] Respiratory 16 16 Rate Blood Pressure 140/77 Blood Pressure 148/79 H 131/73 [Left Upper Arm ] O2 Sat by Pulse 96 97 Oximetry 11/29/19 08:00 Temperature [ 36.4 C Temporal] Pulse, Peripheral Pulse, 80 Peripheral [ Left Pulse Oximetry] Respiratory 16 Rate Blood Pressure Blood Pressure 140/77 [Left Upper Arm ] O2 Sat by Pulse 99 Oximetry Weight - Most Recent: 100.698 kg I&O - Last 24 hours: Intake & Output 11/28/19 11/29/19 11/29/19 22:59 06:59 14:59 Intake Total 500 120 Output Total 600 Balance -100 120 Imaging Impressions - Last 24 hrs: Senior Mainframe Developer shows normal sinus rhythm with heart rates in the 80s with no returned PVCs, tachycardia, PSVT, or other extrasystoles. Chest x-ray, portable, shows no cardiomegaly, pulmonary infiltrates, pneumothorax, etc. Borderline mild centralized congestion of pulmonary vasculature/CHF. Lab Results - Last 24 hrs: Laboratory Results - last 24 hr 11/28/19 11/28/19 11/28/19 Range/Units 13:15 13:15 13:15 WBC 6.5 (4.0-10.2) K/uL RBC 4.63 (3.77-5.09) M/uL Hgb 14.3 (11.7-15.5) g/dL Hct 40.7 (34.0-46.0) % MCV 87.9 (84.0-98.0) fL MCH 30.9 (28.2-33.3) pg MCHC 35.1 (31.7-36.0) g/dL RDW 12.2 (11.2-14.1) % Plt Count 275 (150-350) K/uL Neut % (Auto) 52.1 (45.0-80.0) % Lymph % (Auto) 35.6 (10.0-50.0) % Emery % (Auto) 9.8 (2.0-14.0) % Eos % (Auto) 1.7 (0.0-5.0) % Baso % (Auto) 0.8 (0.0-2.0) % Neut # (Auto) 3.41 (1.40-7.00) K/uL Lymph # (Auto) 2.33 (0.50-3.50) K/uL Emery # (Auto) 0.64 (0.00-1.00) K/uL Eos # (Auto) 0.11 (0.00-0.50) K/uL Baso # (Auto) 0.05 (0.00-0.20) K/uL PT 10.0 (9.5-12.0) SEC INR 1.0 APTT 25.9 (21.0-31.3) SEC D-Dimer, Quantitative 121 (0-400) ng/mL Sodium (136-145) mmol/L Potassium (3.5-5.1) mmol/L Chloride (98-107) mmol/L Carbon Dioxide (21.0-32.0) mmol/L BUN (7-18) mg/dL Creatinine (0.51-1.17) mg/dL Est Cr Clr Drug Dosing Estimated GFR (MDRD) mL/min Glucose (74-106) mg/dL Hemoglobin A1c (4.3-5.7) % Lactic Acid (0.4-2.0) mmol/L Uric Acid (2.6-7.2) mg/dL Calcium (8.5-10.1) mg/dL Magnesium (1.8-2.4) mg/dL Total Bilirubin (0.2-1.0) mg/dL AST (15-37) U/L ALT (12-78) U/L Alkaline Phosphatase (46-116) IU/L Creatine Kinase (26-308) U/L Creatine Kinase Index (0.0-2.5) % CK-MB (CK-2) (0.00-3.60) ng/mL Troponin I (0.000-0.056) ng/mL NT-Pro-B Natriuret Pep (0-125) pg/mL Total Protein (6.4-8.2) g/dL Albumin (3.4-5.0) g/dL Triglycerides (30-150) mg/dL Cholesterol (100-200) mg/dL LDL Cholesterol, Calc (0-100) mg/dL HDL Cholesterol (40-60) mg/dL TSH, Ultra Sensitive (0.358-3.740) mIU/mL 11/28/19 11/28/19 11/28/19 Range/Units 13:15 13:15 20:05 WBC (4.0-10.2) K/uL RBC (3.77-5.09) M/uL Hgb (11.7-15.5) g/dL Hct (34.0-46.0) % MCV (84.0-98.0) fL MCH (28.2-33.3) pg MCHC (31.7-36.0) g/dL RDW (11.2-14.1) % Plt Count (150-350) K/uL Neut % (Auto) (45.0-80.0) % Lymph % (Auto) (10.0-50.0) % Emery % (Auto) (2.0-14.0) % Eos % (Auto) (0.0-5.0) % Baso % (Auto) (0.0-2.0) % Neut # (Auto) (1.40-7.00) K/uL Lymph # (Auto) (0.50-3.50) K/uL Emery # (Auto) (0.00-1.00) K/uL Eos # (Auto) (0.00-0.50) K/uL Baso # (Auto) (0.00-0.20) K/uL PT (9.5-12.0) SEC INR APTT (21.0-31.3) SEC D-Dimer, Quantitative (0-400) ng/mL Sodium 139 (136-145) mmol/L Potassium 3.8 (3.5-5.1) mmol/L Chloride 102 (98-107) mmol/L Carbon Dioxide 27.1 (21.0-32.0) mmol/L BUN 12 (7-18) mg/dL Creatinine 0.77 (0.51-1.17) mg/dL Est Cr Clr Drug Dosing TNP Estimated GFR (MDRD) > 60 mL/min Glucose 129 H (74-106) mg/dL Hemoglobin A1c (4.3-5.7) % Lactic Acid 1.2 (0.4-2.0) mmol/L Uric Acid 3.7 (2.6-7.2) mg/dL Calcium 8.9 (8.5-10.1) mg/dL Magnesium 1.8 (1.8-2.4) mg/dL Total Bilirubin 0.3 (0.2-1.0) mg/dL AST 23 (15-37) U/L ALT 31 (12-78) U/L Alkaline Phosphatase 58 (46-116) IU/L Creatine Kinase 129 112 (26-308) U/L Creatine Kinase Index 0.9 1.1 (0.0-2.5) % CK-MB (CK-2) 1.20 1.20 (0.00-3.60) ng/mL Troponin I 0.000 0.059 H* (0.000-0.056) ng/mL NT-Pro-B Natriuret Pep 58 (0-125) pg/mL Total Protein 7.9 (6.4-8.2) g/dL Albumin 4.1 (3.4-5.0) g/dL Triglycerides (30-150) mg/dL Cholesterol (100-200) mg/dL LDL Cholesterol, Calc (0-100) mg/dL HDL Cholesterol (40-60) mg/dL TSH, Ultra Sensitive 0.820 (0.358-3.740) mIU/mL 11/29/19 11/29/19 11/29/19 Range/Units 02:05 07:35 07:35 WBC 6.0 (4.0-10.2) K/uL RBC 4.68 (3.77-5.09) M/uL Hgb 14.2 (11.7-15.5) g/dL Hct 41.6 (34.0-46.0) % MCV 88.9 (84.0-98.0) fL MCH 30.3 (28.2-33.3) pg MCHC 34.1 (31.7-36.0) g/dL RDW 12.4 (11.2-14.1) % Plt Count 262 (150-350) K/uL Neut % (Auto) 53.3 (45.0-80.0) % Lymph % (Auto) 33.3 (10.0-50.0) % Emery % (Auto) 9.9 (2.0-14.0) % Eos % (Auto) 2.3 (0.0-5.0) % Baso % (Auto) 1.2 (0.0-2.0) % Neut # (Auto) 3.22 (1.40-7.00) K/uL Lymph # (Auto) 2.01 (0.50-3.50) K/uL Emery # (Auto) 0.60 (0.00-1.00) K/uL Eos # (Auto) 0.14 (0.00-0.50) K/uL Baso # (Auto) 0.07 (0.00-0.20) K/uL PT (9.5-12.0) SEC INR APTT (21.0-31.3) SEC D-Dimer, Quantitative (0-400) ng/mL Sodium 140 (136-145) mmol/L Potassium 4.0 (3.5-5.1) mmol/L Chloride 103 (98-107) mmol/L Carbon Dioxide 28.5 (21.0-32.0) mmol/L BUN 12 (7-18) mg/dL Creatinine 0.82 (0.51-1.17) mg/dL Est Cr Clr Drug Dosing 75.50 Estimated GFR (MDRD) > 60 mL/min Glucose 125 H (74-106) mg/dL Hemoglobin A1c (4.3-5.7) % Lactic Acid (0.4-2.0) mmol/L Uric Acid (2.6-7.2) mg/dL Calcium 9.0 (8.5-10.1) mg/dL Magnesium (1.8-2.4) mg/dL Total Bilirubin 0.5 (0.2-1.0) mg/dL AST 22 (15-37) U/L ALT 31 (12-78) U/L Alkaline Phosphatase 56 (46-116) IU/L Creatine Kinase 103 92 (26-308) U/L Creatine Kinase Index 0.8 0.8 (0.0-2.5) % CK-MB (CK-2) 0.80 0.70 (0.00-3.60) ng/mL Troponin I 0.033 0.013 (0.000-0.056) ng/mL NT-Pro-B Natriuret Pep (0-125) pg/mL Total Protein 7.7 (6.4-8.2) g/dL Albumin 3.8 (3.4-5.0) g/dL Triglycerides 164 H (30-150) mg/dL Cholesterol 237 H (100-200) mg/dL LDL Cholesterol, Calc 162 H (0-100) mg/dL HDL Cholesterol 42 (40-60) mg/dL TSH, Ultra Sensitive (0.358-3.740) mIU/mL 11/29/19 Range/Units 07:35 WBC (4.0-10.2) K/uL RBC (3.77-5.09) M/uL Hgb (11.7-15.5) g/dL Hct (34.0-46.0) % MCV (84.0-98.0) fL MCH (28.2-33.3) pg MCHC (31.7-36.0) g/dL RDW (11.2-14.1) % Plt Count (150-350) K/uL Neut % (Auto) (45.0-80.0) % Lymph % (Auto) (10.0-50.0) % Emery % (Auto) (2.0-14.0) % Eos % (Auto) (0.0-5.0) % Baso % (Auto) (0.0-2.0) % Neut # (Auto) (1.40-7.00) K/uL Lymph # (Auto) (0.50-3.50) K/uL Emery # (Auto) (0.00-1.00) K/uL Eos # (Auto) (0.00-0.50) K/uL Baso # (Auto) (0.00-0.20) K/uL PT (9.5-12.0) SEC INR APTT (21.0-31.3) SEC D-Dimer, Quantitative (0-400) ng/mL Sodium (136-145) mmol/L Potassium (3.5-5.1) mmol/L Chloride (98-107) mmol/L Carbon Dioxide (21.0-32.0) mmol/L BUN (7-18) mg/dL Creatinine (0.51-1.17) mg/dL Est Cr Clr Drug Dosing Estimated GFR (MDRD) mL/min Glucose (74-106) mg/dL Hemoglobin A1c 5.8 H (4.3-5.7) % Lactic Acid (0.4-2.0) mmol/L Uric Acid (2.6-7.2) mg/dL Calcium (8.5-10.1) mg/dL Magnesium (1.8-2.4) mg/dL Total Bilirubin (0.2-1.0) mg/dL AST (15-37) U/L ALT (12-78) U/L Alkaline Phosphatase (46-116) IU/L Creatine Kinase (26-308) U/L Creatine Kinase Index (0.0-2.5) % CK-MB (CK-2) (0.00-3.60) ng/mL Troponin I (0.000-0.056) ng/mL NT-Pro-B Natriuret Pep (0-125) pg/mL Total Protein (6.4-8.2) g/dL Albumin (3.4-5.0) g/dL Triglycerides (30-150) mg/dL Cholesterol (100-200) mg/dL LDL Cholesterol, Calc (0-100) mg/dL HDL Cholesterol (40-60) mg/dL TSH, Ultra Sensitive (0.358-3.740) mIU/mL Laboratory Tests 11/28/19 11/28/19 11/28/19 Range/Units 13:15 13:15 13:15 WBC 6.5 (4.0-10.2) K/uL RBC 4.63 (3.77-5.09) M/uL Hgb 14.3 (11.7-15.5) g/dL Hct 40.7 (34.0-46.0) % MCV 87.9 (84.0-98.0) fL MCH 30.9 (28.2-33.3) pg MCHC 35.1 (31.7-36.0) g/dL RDW 12.2 (11.2-14.1) % Plt Count 275 (150-350) K/uL Neut % (Auto) 52.1 (45.0-80.0) % Lymph % (Auto) 35.6 (10.0-50.0) % Emery % (Auto) 9.8 (2.0-14.0) % Eos % (Auto) 1.7 (0.0-5.0) % Baso % (Auto) 0.8 (0.0-2.0) % Neut # (Auto) 3.41 (1.40-7.00) K/uL Lymph # (Auto) 2.33 (0.50-3.50) K/uL Emery # (Auto) 0.64 (0.00-1.00) K/uL Eos # (Auto) 0.11 (0.00-0.50) K/uL Baso # (Auto) 0.05 (0.00-0.20) K/uL PT 10.0 (9.5-12.0) SEC INR 1.0 APTT 25.9 (21.0-31.3) SEC D-Dimer, Quantitative 121 (0-400) ng/mL Sodium (136-145) mmol/L Potassium (3.5-5.1) mmol/L Chloride (98-107) mmol/L Carbon Dioxide (21.0-32.0) mmol/L BUN (7-18) mg/dL Creatinine (0.51-1.17) mg/dL Est Cr Clr Drug Dosing Estimated GFR (MDRD) mL/min Glucose (74-106) mg/dL Hemoglobin A1c (4.3-5.7) % Lactic Acid (0.4-2.0) mmol/L Uric Acid (2.6-7.2) mg/dL Calcium (8.5-10.1) mg/dL Magnesium (1.8-2.4) mg/dL Total Bilirubin (0.2-1.0) mg/dL AST (15-37) U/L ALT (12-78) U/L Alkaline Phosphatase (46-116) IU/L Creatine Kinase (26-308) U/L Creatine Kinase Index (0.0-2.5) % CK-MB (CK-2) (0.00-3.60) ng/mL Troponin I (0.000-0.056) ng/mL NT-Pro-B Natriuret Pep (0-125) pg/mL Total Protein (6.4-8.2) g/dL Albumin (3.4-5.0) g/dL Triglycerides (30-150) mg/dL Cholesterol (100-200) mg/dL LDL Cholesterol, Calc (0-100) mg/dL HDL Cholesterol (40-60) mg/dL TSH, Ultra Sensitive (0.358-3.740) mIU/mL 11/28/19 11/28/19 11/28/19 Range/Units 13:15 13:15 20:05 WBC (4.0-10.2) K/uL RBC (3.77-5.09) M/uL Hgb (11.7-15.5) g/dL Hct (34.0-46.0) % MCV (84.0-98.0) fL MCH (28.2-33.3) pg MCHC (31.7-36.0) g/dL RDW (11.2-14.1) % Plt Count (150-350) K/uL Neut % (Auto) (45.0-80.0) % Lymph % (Auto) (10.0-50.0) % Emery % (Auto) (2.0-14.0) % Eos % (Auto) (0.0-5.0) % Baso % (Auto) (0.0-2.0) % Neut # (Auto) (1.40-7.00) K/uL Lymph # (Auto) (0.50-3.50) K/uL Emery # (Auto) (0.00-1.00) K/uL Eos # (Auto) (0.00-0.50) K/uL Baso # (Auto) (0.00-0.20) K/uL PT (9.5-12.0) SEC INR APTT (21.0-31.3) SEC D-Dimer, Quantitative (0-400) ng/mL Sodium 139 (136-145) mmol/L Potassium 3.8 (3.5-5.1) mmol/L Chloride 102 (98-107) mmol/L Carbon Dioxide 27.1 (21.0-32.0) mmol/L BUN 12 (7-18) mg/dL Creatinine 0.77 (0.51-1.17) mg/dL Est Cr Clr Drug Dosing TNP Estimated GFR (MDRD) > 60 mL/min Glucose 129 H (74-106) mg/dL Hemoglobin A1c (4.3-5.7) % Lactic Acid 1.2 (0.4-2.0) mmol/L Uric Acid 3.7 (2.6-7.2) mg/dL Calcium 8.9 (8.5-10.1) mg/dL Magnesium 1.8 (1.8-2.4) mg/dL Total Bilirubin 0.3 (0.2-1.0) mg/dL AST 23 (15-37) U/L ALT 31 (12-78) U/L Alkaline Phosphatase 58 (46-116) IU/L Creatine Kinase 129 112 (26-308) U/L Creatine Kinase Index 0.9 1.1 (0.0-2.5) % CK-MB (CK-2) 1.20 1.20 (0.00-3.60) ng/mL Troponin I 0.000 0.059 H* (0.000-0.056) ng/mL NT-Pro-B Natriuret Pep 58 (0-125) pg/mL Total Protein 7.9 (6.4-8.2) g/dL Albumin 4.1 (3.4-5.0) g/dL Triglycerides (30-150) mg/dL Cholesterol (100-200) mg/dL LDL Cholesterol, Calc (0-100) mg/dL HDL Cholesterol (40-60) mg/dL TSH, Ultra Sensitive 0.820 (0.358-3.740) mIU/mL 11/29/19 11/29/19 11/29/19 Range/Units 02:05 07:35 07:35 WBC 6.0 (4.0-10.2) K/uL RBC 4.68 (3.77-5.09) M/uL Hgb 14.2 (11.7-15.5) g/dL Hct 41.6 (34.0-46.0) % MCV 88.9 (84.0-98.0) fL MCH 30.3 (28.2-33.3) pg MCHC 34.1 (31.7-36.0) g/dL RDW 12.4 (11.2-14.1) % Plt Count 262 (150-350) K/uL Neut % (Auto) 53.3 (45.0-80.0) % Lymph % (Auto) 33.3 (10.0-50.0) % Emery % (Auto) 9.9 (2.0-14.0) % Eos % (Auto) 2.3 (0.0-5.0) % Baso % (Auto) 1.2 (0.0-2.0) % Neut # (Auto) 3.22 (1.40-7.00) K/uL Lymph # (Auto) 2.01 (0.50-3.50) K/uL Emery # (Auto) 0.60 (0.00-1.00) K/uL Eos # (Auto) 0.14 (0.00-0.50) K/uL Baso # (Auto) 0.07 (0.00-0.20) K/uL PT (9.5-12.0) SEC INR APTT (21.0-31.3) SEC D-Dimer, Quantitative (0-400) ng/mL Sodium 140 (136-145) mmol/L Potassium 4.0 (3.5-5.1) mmol/L Chloride 103 (98-107) mmol/L Carbon Dioxide 28.5 (21.0-32.0) mmol/L BUN 12 (7-18) mg/dL Creatinine 0.82 (0.51-1.17) mg/dL Est Cr Clr Drug Dosing 75.50 Estimated GFR (MDRD) > 60 mL/min Glucose 125 H (74-106) mg/dL Hemoglobin A1c (4.3-5.7) % Lactic Acid (0.4-2.0) mmol/L Uric Acid (2.6-7.2) mg/dL Calcium 9.0 (8.5-10.1) mg/dL Magnesium (1.8-2.4) mg/dL Total Bilirubin 0.5 (0.2-1.0) mg/dL AST 22 (15-37) U/L ALT 31 (12-78) U/L Alkaline Phosphatase 56 (46-116) IU/L Creatine Kinase 103 92 (26-308) U/L Creatine Kinase Index 0.8 0.8 (0.0-2.5) % CK-MB (CK-2) 0.80 0.70 (0.00-3.60) ng/mL Troponin I 0.033 0.013 (0.000-0.056) ng/mL NT-Pro-B Natriuret Pep (0-125) pg/mL Total Protein 7.7 (6.4-8.2) g/dL Albumin 3.8 (3.4-5.0) g/dL Triglycerides 164 H (30-150) mg/dL Cholesterol 237 H (100-200) mg/dL LDL Cholesterol, Calc 162 H (0-100) mg/dL HDL Cholesterol 42 (40-60) mg/dL TSH, Ultra Sensitive (0.358-3.740) mIU/mL 11/29/19 Range/Units 07:35 WBC (4.0-10.2) K/uL RBC (3.77-5.09) M/uL Hgb (11.7-15.5) g/dL Hct (34.0-46.0) % MCV (84.0-98.0) fL MCH (28.2-33.3) pg MCHC (31.7-36.0) g/dL RDW (11.2-14.1) % Plt Count (150-350) K/uL Neut % (Auto) (45.0-80.0) % Lymph % (Auto) (10.0-50.0) % Emery % (Auto) (2.0-14.0) % Eos % (Auto) (0.0-5.0) % Baso % (Auto) (0.0-2.0) % Neut # (Auto) (1.40-7.00) K/uL Lymph # (Auto) (0.50-3.50) K/uL Emery # (Auto) (0.00-1.00) K/uL Eos # (Auto) (0.00-0.50) K/uL Baso # (Auto) (0.00-0.20) K/uL PT (9.5-12.0) SEC INR APTT (21.0-31.3) SEC D-Dimer, Quantitative (0-400) ng/mL Sodium (136-145) mmol/L Potassium (3.5-5.1) mmol/L Chloride (98-107) mmol/L Carbon Dioxide (21.0-32.0) mmol/L BUN (7-18) mg/dL Creatinine (0.51-1.17) mg/dL Est Cr Clr Drug Dosing Estimated GFR (MDRD) mL/min Glucose (74-106) mg/dL Hemoglobin A1c 5.8 H (4.3-5.7) % Lactic Acid (0.4-2.0) mmol/L Uric Acid (2.6-7.2) mg/dL Calcium (8.5-10.1) mg/dL Magnesium (1.8-2.4) mg/dL Total Bilirubin (0.2-1.0) mg/dL AST (15-37) U/L ALT (12-78) U/L Alkaline Phosphatase (46-116) IU/L Creatine Kinase (26-308) U/L Creatine Kinase Index (0.0-2.5) % CK-MB (CK-2) (0.00-3.60) ng/mL Troponin I (0.000-0.056) ng/mL NT-Pro-B Natriuret Pep (0-125) pg/mL Total Protein (6.4-8.2) g/dL Albumin (3.4-5.0) g/dL Triglycerides (30-150) mg/dL Cholesterol (100-200) mg/dL LDL Cholesterol, Calc (0-100) mg/dL HDL Cholesterol (40-60) mg/dL TSH, Ultra Sensitive (0.358-3.740) mIU/mL [facility] Results - Last 24 hrs: Microbiology 11/29/19 02:00 Stool Occult Blood ([facility]) - Final Stool / Feces NEGATIVE OCCULT BLOOD REFERENCE RANGE: NEGATIVE Microbiology 11/29/19 02:00 Stool / Feces Stool Occult Blood ([facility]) - Final NEGATIVE OCCULT BLOOD REFERENCE RANGE: NEGATIVE Med Orders - Current: Current Medications Acetaminophen (Tylenol) 650 mg PO Q4H PRN PRN Reason: Pain Metoprolol Succinate (Toprol Xl) 50 mg PO DAILY NESTOR Last Admin: 11/29/19 07:57 Dose: 50 mg Sodium Chloride (Saline Flush) 10 ml FLUSH ASDIRECTED PRN PRN Reason: Keep Vein Open Last Admin: 11/28/19 14:07 Dose: 10 ml Sodium Chloride (Saline Flush) 10 ml FLUSH Q12HR PRN PRN Reason: Keep Vein Open Temazepam (Restoril) 15 mg PO BEDTIME PRN PRN Reason: Insomnia Discontinued Medications Adenosine (Adenocard) 6 mg IVPUSH NOW ONE Stop: 11/28/19 13:09 Last Admin: 11/28/19 13:10 Dose: 6 mg Adenosine (Adenocard) Confirm Administered Dose 6 mg .ROUTE .STK-MED ONE Stop: 11/28/19 13:10 Last Admin: 11/28/19 13:47 Dose: Not Given Aspirin (Aspirin) 324 mg CHEW ONETIME ONE Stop: 11/28/19 13:08 Last Admin: 11/28/19 13:12 Dose: 324 mg Famotidine (Pepcid) 40 mg IVPUSH ONETIME ONE Stop: 11/28/19 13:08 Last Admin: 11/28/19 13:14 Dose: 40 mg Influenza Virus Vaccine (Pharmacy To Dose - Influenza Vaccine) 1 each IM ONETIME ONE Stop: 11/28/19 14:57 Influenza Virus Vaccine (Fluzone Quad [id number] Syringe) 60 mcg IM .ONCE ONE Stop: 11/29/19 08:01 Last Admin: 11/29/19 07:57 Dose: 60 mcg Metoprolol Tartrate (Lopressor) 2.5 mg IVPUSH ONETIME ONE Stop: 11/28/19 13:12 Last Admin: 11/28/19 13:14 Dose: 2.5 mg Metoprolol Tartrate (Lopressor) 50 mg PO ONETIME ONE Stop: 11/28/19 13:47 Last Admin: 11/28/19 13:49 Dose: 50 mg Ticagrelor (Brilinta) 180 mg PO ONETIME ONE Stop: 11/28/19 13:08 Last Admin: 11/28/19 13:12 Dose: 180 mg - Exam Quality Assessment: Reports: Supplemental Oxygen, DVT Prophylaxis. Denies: Central Line/PICC, Urine Catheter, Skin Breakdown, Restraints General: Reports: Alert, Oriented, Cooperative, No Acute Distress HEENT: Reports: Pupils Equal, Pupils Reactive, EOMI, Mucous Membr. Moist/[place], Other (Wears glasses) Neck: Reports: Supple, Trachea Midline, No JVD, No Thyromegaly, +2 Carotid Pulse wo Bruit. Denies: Lymphadenopathy Lungs: Reports: Clear to Auscultation, Normal Respiratory Effort. Denies: Rub Cardiovascular: Reports: Regular Rate, Regular Rhythm, No Murmurs. Denies: Gallops, Rubs GI/Abdominal Exam: Normal Bowel Sounds, Soft, Non-Tender, No Organomegaly, No Distention, No Abnormal Bruit, No Mass, Pelvis Stable, Other (Obese). No: Guarding (Female) Exam: Deferred Rectal (Female) Exam: Deferred Back Exam: Reports: Normal Inspection, Full Range of Motion. Denies: CVA Tenderness (L), CVA Tenderness (R), Muscle Spasm Extremities: Normal Inspection, Normal Range of Motion, Non-Tender, No Pedal Edema, Normal Capillary Refill. No: Meera's Sign Skin: Reports: Warm, Dry, Intact. Denies: Ecchymosis Neurological: Reports: No New Focal Deficit Psy/Mental Status: Reports: Alert, Normal Affect, Normal Mood. Denies: Hallucinations, Withdrawal Symptoms EKG INTERPRETATION EKG Date: 11/29/19 Time: 08:05 Rhythm: NSR Rate (Beats/Min): 71 [place]: Normal (Neutral) P-Wave: Present (Mild diffuse biphasic P waves) QRS: Normal (0.08 seconds) ST-T: Other (New T wave inversion in lead 3 with stable T-wave inversion in lead V1) QT: Normal WA/PQ Interval: 0.16 seconds with mild diffuse biphasic P waves. Resolution of previous pulmonary hypertension by EKG Comparison: Change From Previous EKG (As above since 11/28/19) EKG Interpretation Comments: No acute ischemic changes
== END 2019-11-29 12:54 | disposition home or self-care (01) ==
LOC: LL.ED 13:05 → LL.MS 14:24 → UNDOADMOB 14:24 → LL.MS 14:34
PROVIDERS: ADMIT Family Medicine; ATTEND Family Medicine
DX: I49.3 Ventricular premature depolarization (principal); E78.5 Hyperlipidemia, unspecified; I10 Essential (primary) hypertension; F41.8 Other specified anxiety disorders; M15.0 Primary generalized (osteo)arthritis; E78.00 Pure hypercholesterolemia, unspecified; Z23 Encounter for immunization; Z79.899 Other long term (current) drug therapy; Z88.8 Allergy status to other drugs, medicaments and biological substances; Z91.09 Other allergy status, other than to drugs and biological substances
CPT/HCPCS: 36415; 71045; 80053; 80061; 82272; 82550; 82553; 83036; 83605; 83735; 83880; 84443; 84484; 84550; 85025; 85379; 85610; 85730; 87338; 90686; 93005; A9270; J0153; J3490; 96374; 96375; 99285-25; G0378

== ENCOUNTER 2022-12-21 13:58 | Emergency (ER) | payer OTHER ==
[~2022-12-21 13:58] MED LIST: Sodium Chloride 0.9% 10 ML Syringe FLUSH PRN
[2022-12-21 14:35] LABS: CHLORIDE,CL 103 mmol/L (98-107); SODIUM,NA 140 mmol/L (136-145)
[2022-12-21 14:38] LABS: ESTIMATED GFR 93 mL/min (>=60)
[2022-12-21] MEDS: Sodium Chloride 0.9% 1,000 ML IV ONE (14:42)
[2022-12-21 19:13] VITALS: BP 139/71; PULSE 53
== END 2022-12-21 16:01 | disposition home or self-care (01) ==
LOC: LL.ED 13:58
DX: R26.81 Unsteadiness on feet (principal); E78.00 Pure hypercholesterolemia, unspecified; I10 Essential (primary) hypertension; M19.90 Unspecified osteoarthritis, unspecified site; E66.9 Obesity, unspecified; Z88.8 Allergy status to other drugs, medicaments and biological substances; Z91.013 Allergy to seafood; Z91.048 Other nonmedicinal substance allergy status
CPT/HCPCS: 36415; 70450; 71045; 80053; 82550; 82947; 84484; 85025; 85379; 85610; 93005; 93010; 96360; 99284; 99284-25; J7030